=== PATIENT | female | born 1965 | race Caucasian/White ===

== ENCOUNTER 2022-11-03 09:18 | Outpatient (CLI) | payer OTHER, SELFPAY ==
--- NOTE | 2022-11-03 08:30 | DI.RAD_ITS ---
Exam(s) XR KNEE RT 3V AP,LAT,PANKAJ EXAM: XR KNEE RT 3V AP,LAT,PANKAJ CLINICAL HISTORY: knee pain. TECHNIQUE: 2D digital imaging was performed of the right knee. Three views obtained. AP, lateral an d PA tunnel views were obtained. COMPARISON: CR XR KNEE LT 3V AP,LAT,PANKAJ from 11/03/2022 FINDINGS: BONES: No acute fracture is present. No bony destructive lesion is seen. JOINTS: The knee is normally aligned. No joint effusion is seen. SOFT TISSUE: Normal. IMPRESSION: Unremarkable radiographs of the right knee. DATA REPOSITORY: RADIATION DOSE DELIVERED:
--- NOTE | 2022-11-03 08:30 | DI.RAD_ITS ---
Exam(s) XR KNEE LT 3V AP,LAT,PANKAJ EXAM: XR KNEE LT 3V AP,LAT,PANKAJ CLINICAL HISTORY: knee pain. TECHNIQUE: 2D digital imaging was performed of the left knee. Three images were obtained. AP, late ral and PA tunnel views were obtained. COMPARISON: No exams were available for comparison FINDINGS: BONES: No acute fracture is present. No bony destructive lesion is seen. JOINTS: The knee is normally aligned. No joint effusion is seen. No loose body. SOFT TISSUE: Normal. IMPRESSION: Normal radiographs of the left knee. DATA REPOSITORY: RADIATION DOSE DELIVERED:
== END 2022-11-03 09:19 | disposition home or self-care (01) ==
LOC: DIORS 09:19
PROVIDERS: PCP Nurse Practitioner Family; Referring Provider Nurse Practitioner Family; Visit Provider Physician Assistant
DX: M25.562 Pain in left knee (principal); M25.561 Pain in right knee
CPT/HCPCS: 73562

== ENCOUNTER → 2022-12-05 01:01 | Outpatient (CLI) | payer OTHER, BC, SELFPAY ==
--- NOTE | 2022-12-05 13:00 | DI.MRI_ITS ---
Exam(s) MR LOWER JOINT RT WO EXAM: MR LOWER JOINT RT WO CLINICAL HISTORY: PAIN,INTERNAL DERANGEMENT RT KNEE,M23.91. TECHNIQUE: Multiplanar multisequence MRI was performed. COMPARISON: CR XR KNEE RT 3V AP,LAT,PANKAJ from 11/03/2022 FINDINGS: BONES: There is no fracture or contusion pattern. Subchondral cysts and mild subchondral edema is see n in the lateral tibial plateau. There is otherwise normal marrow signal. JOINTS: There is mild thinning of the articular cartilage in the lateral femoral tibial joint. There is also mild thinning of the articular cartilage and subchondral edema in the patella. There is a s mall amount of fluid in the joint space. TENDONS: Extensor mechanism: Unremarkable. Medial retinaculum: Unremarkable. Lateral retinaculum: Unremarkable. Popliteus: Unremarkable. MUSCLES: Unremarkable. MENISCI: The medial meniscus is unremarkable. The lateral meniscus is unremarkable. SOFT TISSUES: Unremarkable. LIGAMENTS: Anterior Cruciate: Unremarkable. There is fluid adjacent to the proximal anterior cruciate ligament. The ligament does appear to be intact. A small partial tear cannot be entirely excluded. Posterior Cruciate: Unremarkable. Medial Collateral:Unremarkable. Lateral Collateral: Unremarkable. OTHER: IMPRESSION: 1. Degenerative changes seen in the knee. 2. Fluid seen adjacent to the proximal ACL. There may be a small partial tear. 3. No evidence of a meniscal tear. DATA REPOSITORY:
--- NOTE | 2022-12-05 13:35 | DI.MRI_ITS ---
Exam(s) MR LOWER JOINT LT WO EXAM: MR LOWER JOINT LT WO CLINICAL HISTORY: PAIN,INTERNAL DERANGEMENT LT KNEE, M23.92. TECHNIQUE: Multiplanar multisequence MRI was performed. COMPARISON: CR XR KNEE LT 3V AP,LAT,PANKAJ from 11/03/2022 FINDINGS: BONES: There is no fracture or contusion pattern. JOINTS: There is articular cartilage thinning and subchondral edema in the patella. No effusion is p resent. TENDONS: Extensor mechanism: Unremarkable. Medial retinaculum: Unremarkable. Lateral retinaculum: Unremarkable. Popliteus: Unremarkable. MUSCLES: Unremarkable. MENISCI: The medial meniscus is unremarkable. The lateral meniscus is unremarkable. SOFT TISSUES: Unremarkable. LIGAMENTS: Anterior Cruciate: Unremarkable. Posterior Cruciate: Unremarkable. Medial Collateral:Unremarkable. Lateral Collateral: Unremarkable. OTHER: IMPRESSION: 1. Degenerative changes in the knee. 2. No evidence of a meniscal or ligament tear. DATA REPOSITORY:
== END ==
PROVIDERS: PCP Nurse Practitioner Family; Visit Provider Student in an Organized Health Care Education/Training Program
DX: M17.0 Bilateral primary osteoarthritis of knee (principal)
CPT/HCPCS: 73721